=== PATIENT | female | born 1985 | race African-American/Black ===

== ENCOUNTER 2017-12-07 08:26 | Emergency (ER) | payer MEDICAID ==
[~2017-12-07] VITALS: Ht 180.3 cm; Wt 111.1 kg
[~2017-12-07 08:26] MED LIST: NAPROXEN500 M2 ORAL; NKM
--- NOTE | 2017-12-07 08:54 | Emergency Room Report ---
History of Present Illness General Chief Complaint: Back Injury Source: Patient Present Illness HPI Patient is a 32-year-old female presented after increased right flank pain. Patient reports having increased pain after fall. She denies any hematuria or leg numbness or weakness. Pain is worse with movement. Patient denies any fever or or dysuria. The patient had a fall several days ago. Allergies: Coded Allergies: No Known Allergies (Unverified , 06/27/16) Patient History Past Medical History: see triage record Past Surgical History: none Last Menstrual Period: 11/06/17 Now: No Reviewed Nursing Documentation: PMH: Agreed; PSxH: Agreed Nursing Documentation-PMH Past Medical History: No Stated History Review of Systems All Other Systems: negative except mentioned in HPI Physical Exam Vital Signs Date Time Temp Pulse Resp B/P (MAP) Pulse Ox O2 Delivery O2 Flow Rate FiO2 12/07/17 08:28 97.6 79 16 125/79 97 Room Air 97.5 General Appearance: well appearing, no apparent distress, alert, GCS 15, obese Head: normocephalic, atraumatic ENT: hearing grossly normal, normal voice Neck: full range of motion, supple Respiratory: no respiratory distress, speaking full sentences Genitourinary: no CVA tenderness Musculoskeletal: normal inspection, back normal, gait/station normal, normal range of motion, no calf tenderness Neurologic: normal inspection, alert, oriented x3, responsive, education program manager III-XII nml as tested, motor strength/tone normal, normal gait Psychiatric: mood/affect normal Skin: normal inspection, normal color, no rash, other - no bruising noted Medical Decision Making Diagnostic Impression: Primary Impression: Back pain Additional Impressions: Injury of back Lumbar disc disease ER Course Patient presented for back pain. Differential diagnosis included but was not limited to herniated disc, cauda equina syndrome, abdominal aortic aneurysm, perforated ulcer, spinal epidural abscess, spinal stenosis, lumbar fracture, metastatic lesion, pyelonephritis. Patient has a benign exam and does not appear to require any further imaging or laboratory testing at this time. Urine test was negative. Urinalysis showed no evidence of hematuria. The patient declined x-rays.The patient is advised to follow up with primary care doctor for reevaluation. The patient appears to have increased pain to the right side with the left lateral flexion. This is more consistent with lumbar disc disease then contusion. The patient was advised to return if she began having bowel or bladder dysfunction. Patient at this time shows no evidence of radiculopathy. The patient shows no evidence of liver or kidney injury at this time. The patient shows no respiratory distress consistent with rib fracture. The patient is advised that she may need MRI if pain persists or she begins having increased numbness weakness or bowel or bladder dysfunction. Patient is advised to return if any worsening condition or if any changes in status that are concerning. This report is dictated with [employer] gold nib grinder software which may occasionally lead to discrepancies related to use of this software. Labs Test 12/07/17 09:00 Urine Color Yellow Urine Appearance Clear Urine pH 5 (4.5-8.0) Urine Specific [place] 1.020 (1.005-1.035) Urine Protein Negative (NEGATIVE) Urine Glucose (UA) Negative (NEGATIVE) Urine Ketones Negative (NEGATIVE) Urine Occult Blood Negative (NEGATIVE) Urine Nitrite Negative (NEGATIVE) Urine Bilirubin Negative (NEGATIVE) Urine Urobilinogen Normal MG/DL (0.0-1.0) Urine Leukocyte Esterase 1+ (NEGATIVE) Urine HCG, Qualitative Negative (NEGATIVE) Last Vital Signs Date Time Temp Pulse Resp B/P (MAP) Pulse Ox O2 Delivery O2 Flow Rate FiO2 12/07/17 08:28 97.6 79 16 125/79 97 Room Air 97.5 Status: improved Disposition: HOME, SELF-CARE Scripts Ibuprofen* (MOTRIN*) 600 Mg Tablet 600 MG ORAL Q8H PRN for For Pain, #30 TAB 0 Refills Prov: Dru Saba MD 12/07/17 Dru Saba MD Dec 07, 2017 08:54
[2017-12-07 09:20] VITALS: BP 128/78
[2017-12-07 09:26] LABS: APPEARANCE,URINE CLEAR; BILIRUBIN, URINE NEGATIVE (NEGATIVE); GLUCOSE, URINE (UA) NEGATIVE (NEGATIVE); KETONES,URINE NEGATIVE (NEGATIVE); LEUKOCYTE ESTERASE ,URINE 1+ (NEGATIVE); NITRITE,URINE NEGATIVE (NEGATIVE); PH,URINE 5 (4.5-8.0); PROTEIN,URINE NEGATIVE (NEGATIVE); UROBILINOGEN,URINE NORMAL MG/DL (0.0-1.0)
[2017-12-07 09:29] LABS: COLOR,URINE YELLOW
[2017-12-07] MEDS ORDERED: IBUPROFEN600 MG ORAL (09:34)
[2017-12-07] MEDS ORDERED: Ketorolac 60mg Inj IM ONE (09:45)
[2017-12-07] MEDS ORDERED: LIDOCAINE700 M1 TP (09:51)
[2017-12-07 09:54] VITALS: BP 128/78
== END 2017-12-07 09:57 | disposition home or self-care (01) ==
LOC: EMR 09:12
DX: M51.36 Other intervertebral disc degeneration, lumbar region (principal)
CPT/HCPCS: 81003; 81025; 96372; 99283